=== PATIENT | female | born 2000 | race Caucasian/White ===

== ENCOUNTER 2024-12-19 20:37 | Emergency (ER) | payer OTHER, SELFPAY ==
[2024-12-19 20:38] VITALS: BP 141/74; PULSE 139; RESP 22; TEMP 36.4; O2SAT 99; BMI 36.2
[2024-12-19 20:49] VITALS: BP 94/51; PULSE 83
[2024-12-19] MEDS: Famotidine/PF 20 MG/2 ML VIAL IVPUSH (20:49)
[2024-12-19] MEDS: Lactated Ringers 1,000 ML 999 ML IV (20:49)
[2024-12-19] MEDS: diphenhydrAMINE HCL 50 MG/ML VIAL IVPUSH (20:49)
[2024-12-19] MEDS: EPINEPHrine 1 MG/ML VIAL 0.3 MG IM ×2 (20:49→21:26)
[2024-12-19] MEDS: methylPREDNISolone Sod Succ 125 MG/2 ML VIAL IVPUSH (20:51)
--- NOTE | 2024-12-19 20:57 | PC.NURSE ---
Pt given all medications per MAR as soon as pt was in room. IV line placed in R inner arm, pt tolerated well. Pt states she doesn't feel throat closing but there was some numbness and tingling in her tongue. 5 minutes post EPI injection pt redness on face subsided. RT at bedside administering tx, Dr Will at bedside.
[2024-12-19 20:58] VITALS: PULSE 97; RESP 22; O2SAT 98
[2024-12-19] MEDS: Albuterol Sulfate 2.5 MG, Albuterol/Iprat 2.5/0.5MG 3 ML 3 ML INHALE (20:58)
--- NOTE | 2024-12-19 21:01 | ED_ITS ---
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 She suddenly felt dyspnea, lip swelling, facial rash and difficulty breathing. She felt her throat closing. She took 2 liquid benadryl [employer] DIRECT[employer]. complaint: allergic reaction, hives and facial swelling Onset (ago): minute(s) (20) Exposure: unknown Symptoms: rash, itching, facial swelling, lip swelling and difficulty breathing Severity: severe Treatment prior to arrival: benadryl Previous Allergic Reaction History: anaphylaxis Related Data Previous Rx's ?Medication ?Instructions ?Recorded epinephrine 0.3 mg/0.3 mL 0.3 mg (0.3 mL) IM Q10M PRN 12/19/24 injection, auto-injector anaphylaxis #2 ea prednisone 20 mg tablet 40 mg (2 x 20 mg) PO DAILY 5 days 12/19/24 #10 tabs Allergies Allergy/AdvReac Type Severity Reaction Status Date / Time tree nut Allergy Anaphylaxis Verified 12/19/24 20:43 Review of Systems Review of Systems: Constitutional : No Fever, No Chills ENT/Mouth : positive oral swelling, pos Hoarseness, pos Swallowing Difficulty Eyes: No Eye Pain, No Swelling, No Redness Cardiovascular : No Chest Pain, No SOB Respiratory : No Cough, No Sputum, pos Wheezing, pos Dyspnea Gastrointestinal : No Nausea, No Vomiting, No Diarrhea, No abdominal Pain Genitourinary : No Dysuria, No Urinary Frequency, No Hematuria Musculoskeletal : No joint pain, No Myalgias, No Joint Swelling Skin : No Skin Lesions, positive rash Neuro : No Weakness, No Numbness, No Headache All other systems reviewed and are negative [facility] Past Medical History Attestation statement: The following information was validated with the patient. Source: old records reviewed Medical History Anaphylaxis Social History Social History (Updated 12/19/24 @ 21:11 by Damari Whalen DO) Patient Tobacco Use Status: Never used Tobacco Advance Directives: No Advance Directives Information Provided: No Do you have a plan to hurt others: No Plan Physical Exam ED Vital Signs: Vital Signs - 24 hr 12/19/24 20:38 12/19/24 20:49 12/19/24 20:58 Temperature 97.6 F Pulse Rate 139 H 83 97 Respiratory Rate 22 H 22 H Blood Pressure 141/74 H 94/51 L Pulse Oximetry 99 Oxygen Delivery Method Room Air 12/19/24 21:10 12/19/24 21:15 12/19/24 21:26 Temperature Pulse Rate 105 H 100 100 Respiratory Rate 16 17 Blood Pressure 98/60 98/60 98/71 Pulse Oximetry 100 100 Oxygen Delivery Method Room Air BMI result Body Mass Index 36.2 Appearance: Alert. Oriented X3. Mild acute distress. Eyes: Pupils equal, round and reactive to light. ENT: Pharynx lips mildly swollen, uvula is swollen with edema noted, insp stridor noted Neck: Normal inspection. Neck supple. CVS: Normal heart rate and rhythm. Pulses normal. Respiratory: Mild respiratory distress tachypnea and retractions. Breath sounds normal. Abdomen: Soft and nontender. Skin: Skin warm and dry. Normal skin color. Extremities: No lower extremity edema. Neuro: Oriented X 3. No motor deficit. No sensory deficit. CN2-12 intact Course Course Course Narrative: 9pm patient doing better will recheck in 10 min if not fully improved will redose with IM epi 915pm patient is improving at this time but she still has oral swelling and BP is 98/60 I am going to dose second epi shot Medications Administered Discontinued Medications Generic Name Dose Route Start Last Admin Trade Name Zi PRN Reason Stop Dose Admin Albuterol Sulfate 2.5 mg/ 0 mg 12/19/24 20:56 12/19/24 20:58 Albuterol/Ipratropium 3 ml INHALE 12/19/24 20:57 1 dose ONCE ONE Administration Diphenhydramine HCl 50 mg 12/19/24 20:46 12/19/24 20:49 Diphenhydramine Hcl 50 Mg/Ml Vial IVPUSH 12/19/24 20:47 50 mg ONCE ONE Administration Epinephrine 0.3 mg 12/19/24 20:46 12/19/24 20:49 Epinephrine 1 Mg/Ml Vial IM 06/17/25 20:47 0.3 mg STAT STA Administration Epinephrine 0.3 mg 12/19/24 21:15 12/19/24 21:26 Epinephrine 1 Mg/Ml Vial IM 12/19/24 21:16 0.3 mg STAT STA Administration Famotidine 20 mg 12/19/24 20:46 12/19/24 20:49 Famotidine/Pf 20 Mg/2 Ml Vial IVPUSH 12/19/24 20:47 20 mg ONCE ONE Administration Lactated Ringer's 1,000 mls @ 999 mls/hr 12/19/24 20:47 12/19/24 23:05 Lr IV 12/19/24 21:47 Infused .Q1H1M ONE Infusion Methylprednisolone Sodium Succinate 125 mg 12/19/24 20:46 12/19/24 20:51 Methylprednisolone Sod Succ 125 Mg/2 Ml Vial IVPUSH 12/19/24 20:47 125 mg ONCE ONE Administration Medical Decision Making Medical Decision Making MDM Narrative: 24 yo female with PMH of seizures and anaphylaxis who is here with dyspnea, anaphylaxis on arrival given neb, IM epi, steroids, benadryl. Will observe her closely and monitor for repeat treatments Differential Diagnosis Differential Diagnoses: The differential diagnosis associated with the presentation includes anaphylaxis Admission/Observation Consideration of admission/observation: Escalation of care including a dmission/observation considered physician observation started at 1137pm signed out to Dr. Piper pending reassessment in AM Independent Historian Clinical information obtained from an independent historian. History obtained from or confirmed by: Parent Prescription Management I considered prescription management with: Other Critical Care Time Critical Care Time Critical Care Time: Yes Total Critical Care Time: 60 Attestation: repeat IM epi for anaphylaxis x 2, repeat assessments I attest to this time spent taking care of the patient Discharge Plan Discharge Clinical Impression: Anaphylaxis Patient Disposition: Home, Self-Care Instructions: Anaphylaxis (ED) Additional Instructions: return for any worsening symptoms or concerns carry epi pen with you at all time zyrtec 10mg daily it is over the counter Prescriptions: New prednisone 20 mg tablet 40 mg PO DAILY 5 Days Qty: 10 0RF epinephrine 0.3 mg/0.3 mL auto-injector 0.3 mg IM Q10M PRN (Reason: anaphylaxis) Qty: 2 0RF Rx Instructions: for 2 doses Stand Alone Forms: Work/School Release Interventions: ED Discharge Assessment Last Done: 12/20/24 06:39 Discharge Date/Time: 12/20/24 06:41 Print Language: Guyanese
--- NOTE | 2024-12-19 21:01 | PC.NURSE ---
Pt advised to call fro RN if she feels any changes throat or tongue swelling or difficulty breathing.
[2024-12-19 21:10] VITALS: BP 98/60; PULSE 105; RESP 16; O2SAT 100
[2024-12-19 21:15] VITALS: BP 98/60; PULSE 100; RESP 17; O2SAT 100
[2024-12-19 21:26] VITALS: BP 98/71; PULSE 100
--- NOTE | 2024-12-19 21:26 | PC.NURSE ---
pt assisted to bathroom, pt washed up, provided with new linens and new gown at this time. im dose of epi given
[2024-12-20 01:22] VITALS: BP 103/55; PULSE 100; RESP 16; TEMP 36.9; O2SAT 98
[2024-12-20 02:50] VITALS: BP 101/56; PULSE 89; RESP 16; O2SAT 97
[2024-12-20 06:39] VITALS: BP 108/73; PULSE 100; RESP 18; TEMP 36.4; O2SAT 98
== END 2024-12-20 06:41 | disposition home or self-care (01) ==
PROVIDERS: Emergency Provider Emergency Medicine; PCP Internal Medicine
DX: T78.2XXA Anaphylactic shock, unspecified, initial encounter (principal); T78.49XA Other allergy, initial encounter; X58.XXXA Exposure to other specified factors, initial encounter; R00.0 Tachycardia, unspecified; R06.00 Dyspnea, unspecified
CPT/HCPCS: 94640; 96361; 96372; 96374; 96375; 99285; 99291; J0171; J1200; J1308; J2919; J7120